=== PATIENT | male | born 1960 | race African-American/Black ===

== ENCOUNTER 2021-02-25 19:52 | Inpatient (IN) | payer OTHER, MEDICAID ==
[~2021-02-25] VITALS: Ht 188 cm; Wt 69.0 kg
[2021-02-25 22:17] LABS: Hematocrit 46.2 % (41.0-53.0); Mean Corpuscular Hemoglobin 29.2 pg (28.0-32.0); Mean Corpuscular Hgb Conc. 34.7 g/dL (32.0-36.0); Mean Corpuscular Volume 84.3 fL (80.0-100.0); Red Blood Cells 5.47 10^6/uL (4.5-5.90); Red Cell Distribution Width 13.4 % (11.8-14.3)
[2021-02-25 22:28] LABS: White Blood Cell 32.8 10^3/uL (4.4-10.8)
[2021-02-25 22:30] LABS: Basophils % (manual) 0 (0.0-2.0); Blast Cells 0; Eosinophils % (manual) 0 (0-7); Metamyelocytes % 0; Myelocytes % 0; Promyelocytes % 0; Reactive Lymphocytes 0
[2021-02-25 22:34] LABS: Albumin 3.4 g/dL (3.4-5.0); Calcium 9.2 mg/dL (8.5-10.1); Potassium 3.7 mmol/L (3.5-5.1)
[2021-02-25 22:38] LABS: BUN/Creatinine Ratio 8.1; Total Protein 8.2 g/dL (6.4-8.2)
[2021-02-25 23:03] LABS: Band Neutrophils % (manual) 12; Lymphocytes % (manual) 5 (10.0-50.0); Monocytes % (manual) 3 (0-12)
[2021-02-26] MEDS: SODIUM CHLORIDE 0.9% 1,000 ML IV ONE ×2 (01:15→05:24)
[2021-02-26] MEDS ORDERED: InsuLIN REG 1unit/0.01ml Soln (100units/ml) SC ONE (01:15)
[2021-02-26 02:27] LABS: Urine Bacteria NONE SEEN /hpf (None Seen); Urine Blood Negative /uL (Negative); Urine Specific Gravity 1.036 (1.001-1.035); Urine WBC 3 /hpf (0 - 3)
[2021-02-26] MEDS ORDERED: KETOROLAC TROMETH 30 MG/ML 1ML VIAL IV ONE (06:45)
[2021-02-26] MEDS ORDERED: InsuLIN REG 1unit/0.01ml Soln (100units/ml) IV ONE (06:45)
[2021-02-26] MEDS ORDERED: cefTRIAXone 1GM/50ML D5W 50 ML IV ONE ×2 (09:00→13:15)
[2021-02-26] MEDS ORDERED: dilTIAZem 25 MG/5 ML VIAL IV ONE (09:00)
[2021-02-26] MEDS ORDERED: INSULIN LISPRO (HUMAN) 100 UNITS/ML ML SC ONE (09:15)
[2021-02-26 10:13] LABS: Lactic Acid w/Reflex 2.1 mmol/L (0.4-2.0)
[2021-02-26] MEDS ORDERED: NITROGLYCERIN 0.4 MG SL TAB SL PRN ×2 (12:45→13:15)
[2021-02-26] MEDS ORDERED: DEXTROSE (50%) 50ML SYRG IV PRN (12:45)
[2021-02-26] MEDS ORDERED: MORPHINE SULFATE INJECTION 2 MG/ML SYRG IV PRN ×3 (12:45→13:15)
[2021-02-26] MEDS ORDERED: METF-370 PO (13:05)
[2021-02-26] MEDS ORDERED: ASPI-498 PO (13:05)
[2021-02-26] MEDS ORDERED: GLIP5TAB12 PO (13:05)
[2021-02-26] MEDS ORDERED: POM (13:05)
[2021-02-26] MEDS ORDERED: ALUM & MAG HYDROX-SIMETH LIQ(MAALOX) 30 ML PO PRN (13:15)
[2021-02-26] MEDS ORDERED: ACETAMINOPHEN 325 MG TAB PO PRN (13:15)
[2021-02-26] MEDS ORDERED: HYDROcodone-ACET 5/325MG TAB PO PRN (13:15)
[2021-02-26] MEDS ORDERED: CLINDAMYCIN 600MG IV 50 ML IV ONE (13:15)
[2021-02-26] MEDS ORDERED: LORazepam 0.5 MG TAB PO PRN (13:15)
[2021-02-26] MEDS ORDERED: ONDANSETRON HCL 4 MG/2 ML VIAL IV PRN ×2 (13:15)
[2021-02-26] MEDS ORDERED: ENOXAPARIN SOD 120 MG/0.8 ML SYRINGE SC ONE (13:15)
[2021-02-26] MEDS ORDERED: DOCUSATE SOD 100 MG CAP PO PRN (13:15)
[2021-02-26] MEDS ORDERED: LACTATED RINGER'S 1,000 ML IV ONE (13:15)
[2021-02-26] MEDS ORDERED: IOHEXOL 350 MG/ML 100ML IJ ONE ×2 (13:20→13:36)
[2021-02-26 15:05] LABS: CRP High Sensitivity 6.37 mg/dL (< 0.3)
[2021-02-26] MEDS: SODIUM CHLORIDE 0.9% 1,000 ML IV SCH (15:59)
[2021-02-26] MEDS: METOPROLOL SUCCINATE XL 50 MG TAB PO ONE ×2 (16:27→16:40)
[2021-02-26 16:30] VITALS: BP 107/66
[2021-02-26] MEDS: ACCU-CHEK COMFORT CURVE STRIP VI SCH ×2 (16:55→21:48)
[2021-02-26] MEDS: InsuLIN REG 1unit/0.01ml Soln (100units/ml) SC SCH (16:56)
[2021-02-26] MEDS: INSULIN LANTUS (GLARGINE) 1 /0.01ml (100units/ml) SC SCH (22:00)
[2021-02-26] MEDS ORDERED: InsuLIN REG 1unit/0.01ml Soln (100units/ml) SC SCH (22:00)
[2021-02-26] MEDS: ENOXAPARIN SOD 120 MG/0.8 ML SYRINGE SC SCH (22:00)
[2021-02-26] MEDS ORDERED: ATORVASTATIN 20 MG TAB PO SCH (22:00)
[2021-02-26] MEDS: CLINDAMYCIN 600MG IV 50 ML IV SCH (22:03)
[2021-02-26 22:37] VITALS: BP 132/87
[2021-02-27] MEDS: SODIUM CHLORIDE 0.9% 1,000 ML IV SCH (02:35)
[2021-02-27 05:30] VITALS: BP 100/68
[2021-02-27] MEDS: CLINDAMYCIN 600MG IV 50 ML IV SCH (06:30)
[2021-02-27] MEDS: ACCU-CHEK COMFORT CURVE STRIP VI SCH (06:44)
[2021-02-27] MEDS: InsuLIN REG 1unit/0.01ml Soln (100units/ml) SC SCH (06:54)
[2021-02-27] MEDS: INSULIN LANTUS (GLARGINE) 1 /0.01ml (100units/ml) SC SCH (06:55)
[2021-02-27 08:07] LABS: Basophils # (auto) 0.1 10 ^3/uL (0-0.2); Basophils % (auto) 0.4 % (0.0-2.0); Eosinophils # (auto) 0.3 10 ^3/uL (0-0.8); Eosinophils % (auto) 2.4 % (0.0-7.0); Hematocrit 41.4 % (41.0-53.0); Hemoglobin 14.5 g/dL (13.5-17.5); Lymphocytes # (auto) 3.7 10 ^3/uL (0.4-5.4); Lymphocytes % (auto) 26.8 % (10.0-50.0); Mean Corpuscular Hemoglobin 29.8 pg (28.0-32.0); Mean Corpuscular Volume 84.9 fL (80.0-100.0); Monocytes # (auto) 1.9 10 ^3/uL (0-1.3); Monocytes % (auto) 14.3 % (0.0-12.0); Neutrophils # (auto) 7.6 10 ^3/uL (1.6-8.6); Neutrophils % (auto) 56.1 % (37.0-80.0); Nucleated Red Blood Cells % 0.3 %; Red Blood Cells 4.87 10^6/uL (4.5-5.90); Red Cell Distribution Width 13.6 % (11.8-14.3); White Blood Cell 13.6 10^3/uL (4.4-10.8)
[2021-02-27 08:15] VITALS: BP 122/56
[2021-02-27 08:25] LABS: Potassium 3.9 mmol/L (3.5-5.1)
[2021-02-27 08:34] LABS: Albumin 2.4 g/dL (3.4-5.0); BUN/Creatinine Ratio 15.3; Bilirubin, Total 0.5 mg/dL (0.2-1.0); Calcium 8.2 mg/dL (8.5-10.1); Magnesium 2.8 mg/dL (1.6-2.6); Phosphorus 3.3 mg/dL (2.5-4.90); Total Protein 6.4 g/dL (6.4-8.2); Uric Acid 4.8 mg/dL (3.5-7.2)
[2021-02-27 08:52] LABS: INR 1.06 (0.9-1.15); Partial Thromboplastin Time 27.3 sec (23.6-33.0)
[2021-02-27] MEDS: cefTRIAXone 1GM/50ML D5W 50 ML IV SCH ×2 (08:52→09:00)
[2021-02-27] MEDS ORDERED: ASPirin 81 mg TAB PO SCH (10:00)
[2021-02-27] MEDS ORDERED: DOCUSATE SOD 100 MG CAP PO SCH (10:00)
[2021-02-27] MEDS: ENOXAPARIN SOD 120 MG/0.8 ML SYRINGE SC SCH (10:00)
[2021-02-27] MEDS ORDERED: METOPROLOL SUCCINATE XL 50 MG TAB PO SCH (10:00)
== END 2021-02-27 11:30 | disposition left against medical advice (07) | DRG 602 ==
LOC: EDBD 19:52 → ER 19:59 → OVERFLOW 02-26 12:35 → WEST WING 02-26 15:53
PROVIDERS: ADMIT Hospitalist; ATTEND Internal Medicine
DX: L03.116 Cellulitis of left lower limb (principal); J18.9 Pneumonia, unspecified organism; Z68.1 Body mass index [BMI] 19.9 or less, adult; E11.65 Type 2 diabetes mellitus with hyperglycemia; E66.01 Morbid (severe) obesity due to excess calories; E78.5 Hyperlipidemia, unspecified; I11.9 Hypertensive heart disease without heart failure; M54.9 Dorsalgia, unspecified; N47.1 Phimosis; D72.829 Elevated white blood cell count, unspecified; Z20.822 Contact with and (suspected) exposure to COVID-19; G89.29 Other chronic pain; R59.0 Localized enlarged lymph nodes; Z87.891 Personal history of nicotine dependence
CPT/HCPCS: 36415; 71045; 71275; 73590; 73630; 74176; 80053; 81001; 82306; 82962; 83605; 83735; 83880; 84100; 84443; 84484; 84550; 85007; 85025; 85027; 85379; 85610; 85652; 85730; 86141; 87040; 87426; 93005; 93971; 96361; 96372; 96374; 96375; G0378; J0696; J1815; J1885; J3490